=== PATIENT | female | born 1940 | race Caucasian/White ===

== ENCOUNTER 2022-03-14 11:25 | Outpatient (CLI) | payer MEDICARE, OTHER | END 2022-03-14 11:26 | disposition home or self-care (01) | LOC: BICMRI 11:25 | PROVIDERS: ATTEND Anesthesiology | DX: M51.16 Intervertebral disc disorders with radiculopathy, lumbar region (principal); M48.061 Spinal stenosis, lumbar region without neurogenic claudication; N13.30 Unspecified hydronephrosis | CPT/HCPCS: 72148 ==

== ENCOUNTER 2024-08-20 06:37 | Day surgery (SDC) | payer MEDICARE, OTHER ==
[2024-08-19 11:34] VITALS: BMI 19.6
[2024-08-20] MEDS ORDERED: Lidocaine 1% PF 5 ML VIAL ONE (08:07)
[2024-08-20] MEDS ORDERED: PROPOFOL 20 ML ONE (08:07)
[2024-08-20] MEDS ORDERED: fentaNYL PF 100 MCG/2 ML SYRINGE ONE (08:07)
[2024-08-20] MEDS ORDERED: Rocuronium Bromide 10 MG/ML (10ML VIAL) ONE (08:07)
[2024-08-20 08:26] LABS: #Basophils 0.03 10x3/uL (0.0-0.2); %Basophils 0.6 % (0.0-1.0); %Eosinophils 1.2 % (0.0-10.0); %Lymphocytes 23.4 % (21.0-51.0); %Monocytes 6.9 % (0.0-10.0); %Neutrophils 67.7 % (42.0-75.0); Hematocrit 45.1 % (36.0-47.0); Hemoglobin 14.6 g/dL (12.0-16.0); Mean Corpuscular HGB CONC 32.4 g/dL (32.0-36.0); Mean Corpuscular Hemoglobin 29.7 pg (27.0-31.0); Mean Corpuscular Volume 91.7 fL (78.0-98.0); Mean Platelet Volume 9.4 fL (7.4-10.4); Platelet Count 144 10x3/uL (130-400); RBC Distribution Width 13.1 % (11.5-14.5); Red Blood Cell (RBC) Count 4.92 mill/uL (4.20-5.40)
[2024-08-20] MEDS ORDERED: Acetaminophen 500 MG TAB ONE (08:40)
[2024-08-20 08:52] LABS: Anion Gap 13 mmol/L (10-20); BUN (Urea Nitrogen) 23 mg/dL (9.8-20.1); Calc. Creatinine Clearance 49 mL/min (70-130); Calcium 9.4 mg/dL (7.8-10.44); Carbon Dioxide 26 mmol/L (23-31); Chloride 106 mmol/L (98-107); Estimated GFR 79; Glucose 95 mg/dL (83-110); Potassium 4.1 mmol/L (3.5-5.1); Sodium 141 mmol/L (136-145)
[2024-08-20] MEDS ORDERED: CEFAZOLIN 2 GM VIAL ONE ×2 (08:57→13:43)
[2024-08-20] MEDS ORDERED: PHENYLEPHRINE-NS 100 MCG/ML 10 ML SYRINGE ONE (09:42)
[2024-08-20] MEDS ORDERED: Dexamethasone 20 MG/5 ML VIAL ONE (10:30)
[2024-08-20] MEDS ORDERED: Sterile Water 10 ML ONE (10:30)
[2024-08-20] MEDS ORDERED: SUGAMMADEX SODIUM 200 MG/2 ML VIAL ONE (10:31)
[2024-08-20] MEDS ORDERED: fentaNYL 50 mcg/mL 1 mL Vial ONE (11:19)
[2024-08-20] MEDS ORDERED: HYDROcodone/Acetaminophen 5/325 mg Tablet ONE (13:43)
[2024-08-20] MEDS ORDERED: Sodium Chloride 0.9% 100 ML ONE (13:44)
== END 2024-08-20 14:50 | disposition home or self-care (01) ==
LOC: SDC 06:37
PROVIDERS: ATTEND Neurological Surgery
PROC: 01NB0ZZ Release Lumbar Nerve, Open Approach (ICD-10-PCS; principal; 2024-08-20)
DX: M54.16 Radiculopathy, lumbar region (principal); I73.9 Peripheral vascular disease, unspecified; I10 Essential (primary) hypertension; E78.5 Hyperlipidemia, unspecified; I25.2 Old myocardial infarction; M19.90 Unspecified osteoarthritis, unspecified site; Z86.73 Personal history of transient ischemic attack (TIA), and cerebral infarction without residual deficits; Z79.899 Other long term (current) drug therapy; Z88.8 Allergy status to other drugs, medicaments and biological substances
CPT/HCPCS: 63047; 80048; 85025; 93005; J1100; J2704; J3010; 93010